=== PATIENT | male | born 1965 | race Caucasian/White ===

== ENCOUNTER → 2016-02-21 | Outpatient (CLI) | payer BC ==
[~2016-02-21] MED LIST: CEPH500C PO; CHOL20009 PO; CLON0.5T3 PO; CLR10 PO; ESCI1TAB10 PO; ESCI5TAB PO; MULT-506 PO; PANT40TA PO; SIMV10TA2 PO
[2016-02-21 09:37] LABS: MEAN CELL VOLUME 94.4 fL (80-100); MEAN CORPUSCULAR HEMOGLOBIN 31.5 pg (25-34); MEAN CORPUSCULAR HGB CONC 33.4 g/dl (32-36); MEAN PLATELET VOLUME 11.8 fL (7.4-10.4); PLATELET COUNT 192 K/uL (130-400); RED BLOOD COUNT 4.98 M/uL (4.7-6.1); WHITE BLOOD COUNT 5.84 K/uL (4.8-10.8)
[2016-02-21 09:47] LABS: ALT/SGPT 50 U/L (12-78); AST/SGOT 21 U/L (15-37); BLOOD UREA NITROGEN 16 mg/dl (7-18); BUN/CREATININE RATIO 14.7 (10-20); CALCIUM 8.8 mg/dl (8.5-10.1); CARBON DIOXIDE 28 mmol/L (21-32); CHLORIDE 107 mmol/L (98-107); GLUCOSE 101 mg/dl (70-99); SODIUM 142 mmol/L (136-145)
[2016-02-21 09:56] LABS: ALB/GLOB RATIO 1.1 (0.9-2); ALKALINE PHOSPHATASE 65 U/L (45-117); CHOLESTEROL 163 mg/dl (0-200); CHOLESTEROL/HDL RATIO 3.4; HDL CHOLESTEROL 48 mg/dl; LDL CHOLESTEROL CALCULATED 91 mg/dl; TRIGLYCERIDES 119 mg/dl (0-150); VERY LOW DENSITY LIPOPROT CALC 24 mg/dl
[2016-02-21 10:01] LABS: ESTIMATED AVERAGE GLUCOSE 117 mg/dl; HA1C FLAG Normal (Normal)
--- NOTE | 2016-02-27 15:38 | CODING QUERY MEDICAL NECESSITY ---
SUPPORTING DIAGNOSIS NEEDED 63 A supporting diagnosis is required for the test/procedure performed on this patient in order for us to be reimbursed by the patient's insurance. Please provide a supporting diagnosis for the following test/procedure listed below next to the test name along with your signature. *If there is no additional diagnosis for this patient that would support the following test/procedure please document that below next to the test/procedure. DOS 02/21/16 Test(s)/Procedure(s) that require a supporting diagnosis: * VITAMIN D, 25-HYDROXY DIAGNOSIS: Provider Signature: Date: Thank you Zahira Youssef Health Information Management Once completed, please kindly fax back to [phone] For questions please call [phone]
== END | disposition home or self-care (01) ==
LOC: C.LAB 07:17
PROVIDERS: ATTEND Family Medicine
DX: R73.09 Other abnormal glucose (principal); E55.9 Vitamin D deficiency, unspecified

== ENCOUNTER → 2016-05-25 | Outpatient (CLI) | payer BC ==
[~2016-05-25] VITALS: Ht 180.3 cm; Wt 75.0 kg
[2016-05-25 15:59] VITALS: BP 115/74; Ht 180.3 cm; Wt 75.0 kg
== END | disposition home or self-care (01) ==
LOC: C.NEUR 14:22
PROVIDERS: ATTEND Physician Assistant
DX: G47.33 Obstructive sleep apnea (adult) (pediatric) (principal); G47.61 Periodic limb movement disorder; G25.81 Restless legs syndrome

== ENCOUNTER 2016-10-03 16:57 | Emergency (ER) | payer BC ==
[~2016-10-03] VITALS: Ht 157.5 cm; Wt 102.3 kg
[~2016-10-03 16:57] MED LIST changes: -CEPH500C PO
[2016-10-03 17:05] VITALS: TEMP 36.7; Ht 157.5 cm; Wt 102.3 kg
[2016-10-03] MEDS ORDERED: XYLOCAINE 1%/SOD BICARB 20 ML VIAL INFIL ONE (17:30)
--- NOTE | 2016-10-03 17:54 | DIAGNOSTIC IMAGING REPORT ---
LEFT INDEX FINGER 3 VIEWS HISTORY: L index finger lac (dorsal base of finger) COMPARISON: None. FINDINGS: There is no fracture or dislocation. Soft tissue swelling and a laceration at the level of the second MCP joint. 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 No radiopaque foreign bodies. IMPRESSION: No fractures. Soft tissue swelling and a laceration at the level of the second MCP joint. Electronically signed by: Robbin Aguilar M.D. 10/03/2016 5:52 PM Dictated Date/Time: 10/03/2016 5:52 PM
[2016-10-03] MEDS ORDERED: CEPH500C PO (18:19)
[2016-10-03 18:55] VITALS: BP 121/79; PULSE 71; O2SAT 97
--- NOTE | 2016-10-03 23:52 | EMERGENCY ROOM VISIT NOTE ---
History First contact with patient: 17:18 Chief Complaint: LACERATION/CUT (SUT/DERMABOND) Stated Complaint: LACERATION TO LEFT HAND, 2ND DIGIT Nursing Triage Summary: pt states he was stripping a electrical box and cut left index finger. bandage to area in triage. bleeding controlled at this time History of Present Illness The patient is a 51 year old male who presents to the Emergency Room with complaints of a laceration to his left index finger. The patient reports that he was attempting to strip a wire with wire strippers and his hand pulled back and hit the edge of an electrical panel. The patient denies any significant pain, paresthesias or numbness of the finger. He rates his discomfort a 2 out of 10. The patient is [id number], and tetanus immunization is up-to- date. Review of Systems 10 system review was performed and was negative except for pertinent positives and negatives as indicated in history of present illness Past Medical/Surgical History Medical Problems: (1) Acid reflux (2) Depression (3) Restless leg syndrome (4) Sleep apnea Family History Lung disease Social History Smoking Status: Never Smoker Alcohol Use: none Marital Status: Housing Status: lives with significant other Occupation Status: employed Current/Historical Medications Scheduled Cephalexin Monohydrate (Keflex), 500 MG PO TID Cholecalciferol (Vitamin D), 2,000 INTUNIT PO QAM Clonazepam (Klonopin), 0.5 MG PO HS Escitalopram Oxalate (Lexapro), 5 MG PO QAM Escitalopram Oxalate (Lexapro), 20 MG PO QAM Loratadine (Claritin), 10 MG PO QAM Multivitamin (Multivitamin), 1 TAB PO QAM Pantoprazole (Protonix), 40 MG PO HS Simvastatin (Zocor), 10 MG PO QPM Physical Exam Vital Signs Date Time Temp Pulse Resp B/P (MAP) Pulse Ox O2 Delivery O2 Flow Rate FiO2 10/03/16 18:55 71 17 121/79 97 10/03/16 17:05 36.7 74 18 123/82 96 Room Air Physical Exam CONSTITUTIONAL: Healthy and well nourished. Alert and oriented X 3 with positive affect. HEENT: Normocephalic, atraumatic. Pupils equal, round and reactive. MUSCULOSKELETAL: Examination of the left index finger shows a 1.5 cm curvilinear laceration at the dorsal base of the proximal phalanx, just distal to the MCP joint. With flexion of the finger, there does appear to be exposure of the lacerated tendon. The patient has moderate extensor function of the finger. Capillary refill is less than 2 seconds. INTEGUMENTARY: No rash or other significant dermatologic conditions noted. NEUROLOGIC: No focal neurologic deficits noted. Left index fingertip is sensory intact. Medical Decision & Procedures ER Provider Diagnostic Interpretation: My interpretation of left index finger x-rays does not show any radiopaque foreign bodies, fractures or dislocations. Radiologist report is as follows: LEFT INDEX FINGER 3 VIEWS HISTORY: L index finger lac (dorsal base of finger) COMPARISON: None. FINDINGS: There is no fracture or dislocation. Soft tissue swelling and a laceration at the level of the second MCP joint. 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 No radiopaque foreign bodies. IMPRESSION: No fractures. Soft tissue swelling and a laceration at the level of the second MCP joint. Procedure Wound evaluation, irrigation and laceration repair was performed under local anesthesia after receiving verbal consent from the patient. Using buffered 1% lidocaine without epinephrine, good local anesthesia was administered. The wound was then peripherally cleansed with iodine, then copiously pressure irrigated with normal saline. Exploration of the wound does not show any obvious extensor tendon laceration. The patient also has good extensor function against resistance. Prior to closure, the wound was also visualized by Eliza Johnson PA-C with [facility]. The wound was then approximated using 5-0 nylon simple interrupted sutures. Bacitracin dressing and metal splint to hold the finger in full extension was applied. ED Course Patient history and physical exam were performed. Nurse's notes were reviewed. Vital signs were reviewed and were normal. X-rays of the finger were normal. Wound exploration, irrigation and laceration repair was performed under local anesthesia. Although wound exploration and tendon function exam is not suggestive of tendon laceration, I did elect to apply a metal splint in full extension until patient is rechecked on Saturday by Dr. Olguin. The patient will be provided a Keflex prescription as well. The patient was encouraged to alternate ibuprofen and Tylenol as needed for pain. The patient was happy with plan of care, and denied any pain at the completion of my exam. Medical Decision Medication Reconcilliation Current Medication List: was personally reviewed by me Blood Pressure Screening Patient's blood pressure: Normal blood pressure Impression Primary Impression: Laceration of left index finger Departure Information Prescriptions Cephalexin Monohydrate (Keflex) 500 Mg Cap 500 MG PO TID for 7 Days, #21 CAP Prov: Surinder Varela PA 10/03/16 Referrals Johnson Abbott M.D. (PCP) Patient Instructions [facility] Problem Qualifiers Primary Impression: Laceration of left index finger Encounter type: initial encounter Damage to nail status: without damage Foreign body presence: without foreign body Qualified Codes: S61.211A - Laceration without foreign body of left index finger without damage to nail, initial encounter
== END 2016-10-03 18:56 | disposition home or self-care (01) ==
LOC: C.EDB 16:58 → C.EDD 18:56
DX: S61.211A Laceration without foreign body of left index finger without damage to nail, initial encounter (principal); W45.8XXA Other foreign body or object entering through skin, initial encounter; K21.9 Gastro-esophageal reflux disease without esophagitis; F32.9 Major depressive disorder, single episode, unspecified; G47.39 Other sleep apnea; G25.81 Restless legs syndrome; Z79.899 Other long term (current) drug therapy

== ENCOUNTER → 2017-06-25 | Outpatient (CLI) | payer BC ==
[~2017-06-25] VITALS: Ht 180.3 cm; Wt 100.5 kg
[2017-06-25 16:28] VITALS: BP 113/82; PULSE 67; Ht 180.3 cm; Wt 100.5 kg
== END | disposition home or self-care (01) ==
LOC: C.NEUR 15:28
PROVIDERS: ATTEND Physician Assistant Medical
DX: G47.33 Obstructive sleep apnea (adult) (pediatric) (principal); G47.61 Periodic limb movement disorder; G25.81 Restless legs syndrome